=== PATIENT | male | born 2000 | race Caucasian/White ===

== ENCOUNTER 2019-05-03 11:41 | Observation (INO) | payer OTHER ==
[~2019-05-03] VITALS: Ht 182.9 cm; Wt 95.1 kg
--- NOTE | 2019-05-03 12:35 | History & Physicial ---
HPI History of Present Illness: HPI/Chief Complaint 19 yo wm presents with fever and left thigh pain.Had tattoo placed in [place] 5 days prior to this admission. Was done at a professional parlor, equipment was opened in front of him. Thigh around tattoo was red yesterday, today swollen , red hot with increased pain and surrounding pustules. Temperature is 101.3 with tachycardia. Pt has had a history of fractured left femur and has a cj in same leg. Source: patient Exam Limitations: no limitations Date Seen 05/03/19 Time Seen by a Provider: 11:30 Attending Physician Osorio Valverde MD [facility] Referring Physician Date of Admission May 03, 2019 at 12:17 Home Medications & Allergies Home Medications Reviewed patient Home Medication Reconciliation performed by pharmacy medication reconciliations tree trimming line technician and/or nursing. Patients Allergies have been reviewed. Allergies Allergies Coded Allergies Penicillins (Verified Allergy, Unknown, 05/03/19) fluticasone (Verified Allergy, Unknown, 05/03/19) PCN Past Lwahmgp-Thmzkm-Jdrryj Hx Patient Social History Marrital Status: single Employed/Student: student, full-time Recent Foreign Travel: No Contact w/other who traveled: No Surgeries Abdominal (bilateral inguinal hernias), Appendectomy Respiratory No Cardiovascular No Neurological No Genitourinary No Gastrointestinal No Musculoskeletal Fractures (left femur) Endocrine History of Endocrine Disorders: No HEENT History of HEENT Disorders: No Cancer No Did You Recieve Any Treatments: No Psychosocial History of Psychiatric Problem: No Integumentary History of Skin or Integumenta: No Family Medical History Significant Family History: No Pertinent Family Hx Review of Systems Constitutional: see HPI, chills, fever EENTM: no symptoms reported Respiratory: no symptoms reported Cardiovascular: no symptoms reported Gastrointestinal: no symptoms reported Genitourinary: no symptoms reported Musculoskeletal: muscle pain Skin: change in color, rash Psychiatric/Neurological: No Symptoms Reported Physical Exam Physical Exam Vital Signs Vital Signs - First Documented 05/03/19 12:48 Temp 98.1 Pulse 91 Resp 20 B/P (MAP) 132/66 Pulse Ox 99 O2 Delivery Room Air Capillary Refill : less than 3 secs Height, Weight, BMI Height: '" Weight: lbs. oz. kg; BMI Method: General Appearance: WD/WN HEENT: Normal ENT Inspection Neck: Full Range of Motion, Non Tender, Supple Respiratory: Chest Non Tender, Lungs Clear, Normal Breath Sounds, No Accessory Muscle Use, No Respiratory Distress Cardiovascular: Tachycardia Gastrointestinal: Normal Bowel Sounds, Soft Rectal: Deferred Back: Normal Inspection Extremity: Inflammation, Other (left thigh swollen, tight hot with erythema and sourrounding pustules, very tender) Skin: Erythema, Rash Assessment/Plan Admission Diagnosis Sepsis cellulitis Hx fractured femur with indwelling cj-same leg Admission Status: Observation Diagnosis/Problems Diagnosis/Problems (1) Sepsis Status: Acute Qualifiers: Qualified Codes: A41.9 - Sepsis, unspecified organism (2) Cellulitis Qualifiers: Qualified Codes: L03.116 - Cellulitis of left lower limb (3) Closed femur fracture Status: Resolved Resolution Date/Time: 05/03/19 @ 13:09 OSORIO VALVERDE MD May 03, 2019 12:35
[2019-05-03 12:48] VITALS: BP 132/66
[2019-05-03 13:00] VITALS: BP 132/66
[2019-05-03] MEDS ORDERED: NS IV NR (13:00)
[2019-05-03] MEDS ORDERED: NS IV 1000 ML 1,000 ML IV SCH (13:00)
[2019-05-03] MEDS ORDERED: IBUPROFEN TABLET 200 MG TAB PO PRN (13:15)
[2019-05-03] MEDS ORDERED: VANCOMYCIN INJECTION 2,000 MG in NS IV 500 ML 500 ML IV NR (13:39)
[2019-05-03 13:58] LABS: BASOPHILS % (AUTO) 0 % (0-10); EOSINOPHILS # (AUTO) 0.2 10^3/uL (0.0-0.3); EOSINOPHILS % (AUTO) 2 % (0-10); HEMATOCRIT 37 % (40-54); HEMOGLOBIN 12.7 G/DL (13.3-17.7); LYMPHOCYTES # (AUTO) 0.7 X 10^3 (1.0-4.0); LYMPHOCYTES % (AUTO) 7 % (12-44); MEAN CORPUSCULAR HEMOGLOBIN 32 PG (25-34); MEAN CORPUSCULAR HGB CONC 35 G/DL (32-36); MEAN CORPUSCULAR VOLUME 92 FL (80-99); MEAN PLATELET VOLUME 11.1 FL (7.4-10.4); MONOCYTES # (AUTO) 0.4 X 10^3 (0.0-1.0); MONOCYTES % (AUTO) 4 % (0-12); NEUTROPHILS # (AUTO) 7.9 X 10^3 (1.8-7.8); NEUTROPHILS % (AUTO) 86 % (42-75); PLATELET COUNT 141 10^3/uL (130-400); RED CELL DISTRIBUTION WIDTH 11.7 % (10.0-14.5); WHITE BLOOD COUNT 9.2 10^3/uL (4.3-11.0)
[2019-05-03] MEDS ORDERED: ceFAZolin INJECTION 1,000 MG in WATER (STERILE) FOR INJECTION 10 ML IV SCH (14:00)
--- NOTE | 2019-05-03 14:04 | NUR ---
PATIENT DOES NOT TAKE ANY MEDICATION.
[2019-05-03 14:20] LABS: ALANINE AMINOTRANSFERASE 79 U/L (0-55); ALBUMIN 4.3 GM/DL (3.2-4.5); ALKALINE PHOSPHATASE 95 U/L (40-136); BILIRUBIN,TOTAL 2.3 MG/DL (0.1-1.0); BUN/CREATININE RATIO 7; CALCIUM 9.8 MG/DL (8.5-10.1); CARBON DIOXIDE 25 MMOL/L (21-32); CHLORIDE 101 MMOL/L (98-107); CREATININE SERUM 1.15 MG/DL (0.60-1.30); GFR ESTIMATED > 60; GLUCOSE 100 MG/DL (70-105); POTASSIUM 3.9 MMOL/L (3.6-5.0); SODIUM 138 MMOL/L (135-145); TOTAL PROTEIN 7.3 GM/DL (6.4-8.2)
[2019-05-03 14:28] LABS: BAND NEUTROPHILS 4 %; BASOPHILS % (MANUAL) 0 %; EOSINOPHILS % (MANUAL) 1 %; LYMPHOCYTES % (MANUAL) 8 %; MONOCYTES % (MANUAL) 0 %; NEUTROPHILS % (MANUAL) 87 %; RBC MORPH NORMAL
[2019-05-03] MEDS: NS IV 1000 ML 1,000 ML IV SCH ×2 (14:30→22:21)
--- NOTE | 2019-05-03 14:59 | Consultation (Surgery) ---
History of Present Illness History of Present Illness Patient Consulted On(melissa/time) 05/03/19 14:58 Date Seen by Provider: May 03, 2019 Time Seen by Provider: 14:59 History of Present Illness consult requested by Dr. Arias for cellulitis left thigh. patient is a 19-year-old male who had had to place 5 days ago in [place]. had to place 5 days ago in [place]. and swelling. Tender to touch. Significant redness and began having fever. Patient also found to be tachycardic. Patient having moderate pain due to the swelling. Patient states nothing was seen to make it better. Nothing was seems to make it worse except for sometimes movement with the pain. Patient has had fever. he notes left thigh swelling. He denies any sweats chills shortness of breath or chest pain.he also notes that the only difference between his sister and his, was that an unknown ointment was used on his. Allergies and Home Medications Allergies Coded Allergies: Penicillins (Verified Allergy, Unknown, 05/03/19) fluticasone (Verified Allergy, Unknown, 05/03/19) Home Medications No Active Prescriptions or Reported Meds Patient Home Medication List Home Medication List Reviewed: Yes Past Coewalq-Mlnmwg-Kyfnul Hx Patient Social History Alcohol Use: Denies Use Recreational Drug Use: No Smoking Status: Never a Smoker Recent Foreign Travel: No Contact w/Someone Who Travel: No Recent Infectious Disease Expo: No Surgeries Surgeries: Abdominal (bilateral inguinal hernias), Appendectomy Respiratory History of Respiratory Disorde: No Cardiovascular History of Cardiac Disorders: No Neurological History of Neurological Disord: No Genitourinary History of Genitourinary Disor: No Gastrointestinal History of Gastrointestinal Di: No Musculoskeletal Musculoskeletal Disorders: Fractures (left femur) Endocrine History of Endocrine Disorders: No HEENT History of HEENT Disorders: No Cancer History of Cancer: No Psychosocial History of Psychiatric Problem: No Integumentary History of Skin or Integumenta: No Family Medical History Significant Family History: No Pertinent Family Hx Review of Systems-General Constitutional: fever EENTM: no symptoms reported Respiratory: no symptoms reported Cardiovascular: no symptoms reported Gastrointestinal: no symptoms reported Genitourinary: no symptoms reported Musculoskeletal: no symptoms reported Skin: see HPI Psychiatric/Neurological: No Symptoms Reported Physical Exam-General Problems Physical Exam Vital Signs Vital Signs - First Documented 05/03/19 12:48 Temp 98.1 Pulse 91 Resp 20 B/P (MAP) 132/66 Pulse Ox 99 O2 Delivery Room Air Capillary Refill : General Appearance: no apparent distress HEENT: PERRL/EOMI Neck: non-tender, supple Respiratory: chest non-tender, no respiratory distress, no accessory muscle use Cardiovascular: regular rate, rhythm Gastrointestinal: non tender, soft Rectal: deferred Back: no CVA tenderness Extremities: other (left thigh swollen significant erythema with small pustules surrounding tattoo on left anterior thigh) 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, no motor/sensory deficits, alert, normal mood/affect, oriented x 3 Skin: rash (erythema large portion of left thigh) Lymphatic: no adenopathy Data Review Labs Laboratory Tests 05/03/19 13:47: White Blood Count 9.2, Red Blood Count 3.99L, Hemoglobin 12.7L, Hematocrit 37L, Mean Corpuscular Volume 92, Mean Corpuscular Hemoglobin 32, Mean Corpuscular Hemoglobin Concent 35, Red Cell Distribution Width 11.7, Platelet Count 141, Mean Platelet Volume 11.1H, Neutrophils (%) (Auto) 86H, Lymphocytes (%) (Auto) 7L, Monocytes (%) (Auto) 4, Eosinophils (%) (Auto) 2, Basophils (%) (Auto) 0, Neutrophils # (Auto) 7.9H, Lymphocytes # (Auto) 0.7L, Monocytes # (Auto) 0.4, Eosinophils # (Auto) 0.2, Basophils # (Auto) 0.0, Neutrophils % (Manual) 87, Lym phocytes % (Manual) 8, Monocytes % (Manual) 0, Eosinophils % (Manual) 1, Basophils % (Manual) 0, Band Neutrophils 4, Blood Morphology Comment NORMAL, Sodium Level 138, Potassium Level 3.9, Chloride Level 101, Carbon Dioxide Level 25, Anion Gap 12, Blood Urea Nitrogen 8, Creatinine 1.15, Estimat Glomerular Filtration Rate > 60, BUN/Creatinine Ratio 7, Glucose Level 100, Lactic Acid Level 1.22, Calcium Level 9.8, Corrected Calcium 9.6, Total Bilirubin 2.3H, Aspartate Amino Transf (AST/SGOT) 33, Alanine Aminotransferase (ALT/SGPT) 79H, Alkaline Phosphatase 95, Total Protein 7.3, Albumin 4.3 Assessment/Plan Assessment/Plan Assessment/Plan cellulitis left thigh left thigh pain Patient currently on Ancef and vancomycin. erythema has been outlined. no surgical intervention at this time. We'll continue to follow JULISSA CARBAJAL DO May 03, 2019 14:59
[2019-05-03 15:20] VITALS: BP 132/60
[2019-05-03] MEDS ORDERED: diphenhydrAMINE 12.5 MG/5 ML UDC (BENADRYL) PO PRN (16:30)
[2019-05-03] MEDS: ENOXAPARIN 40 MG/0.4 ML (LOVENOX) SYR SC SCH (18:10)
[2019-05-03] MEDS ORDERED: CATHETER FLUSH 10 ML SYR IV PRN (18:15)
[2019-05-03 19:50] VITALS: BP 133/60
[2019-05-03] MEDS: VANCOMYCIN 1500 MG/NS 500 ML IVPB IV SCH ×2 (22:22)
[2019-05-04] VITALS (8 sets, daily range): BP systolic 116–140; BP diastolic 59–78
[2019-05-04] MEDS: ceFAZolin INJECTION 1,000 MG in WATER (STERILE) FOR INJECTION 10 ML IV SCH ×3 (03:09→17:57)
[2019-05-04 04:45] LABS: BASOPHILS % (AUTO) 0 % (0-10); EOSINOPHILS # (AUTO) 0.3 10^3/uL (0.0-0.3); EOSINOPHILS % (AUTO) 5 % (0-10); HEMATOCRIT 34 % (40-54); HEMOGLOBIN 11.5 G/DL (13.3-17.7); LYMPHOCYTES # (AUTO) 1.6 X 10^3 (1.0-4.0); LYMPHOCYTES % (AUTO) 29 % (12-44); MEAN CORPUSCULAR HEMOGLOBIN 32 PG (25-34); MEAN CORPUSCULAR HGB CONC 34 G/DL (32-36); MEAN CORPUSCULAR VOLUME 93 FL (80-99); MEAN PLATELET VOLUME 11.2 FL (7.4-10.4); MONOCYTES # (AUTO) 0.5 X 10^3 (0.0-1.0); MONOCYTES % (AUTO) 10 % (0-12); NEUTROPHILS # (AUTO) 3.1 X 10^3 (1.8-7.8); NEUTROPHILS % (AUTO) 57 % (42-75); PLATELET COUNT 124 10^3/uL (130-400); RED CELL DISTRIBUTION WIDTH 11.6 % (10.0-14.5); WHITE BLOOD COUNT 5.5 10^3/uL (4.3-11.0)
[2019-05-04 04:59] LABS: ALANINE AMINOTRANSFERASE 49 U/L (0-55); ALBUMIN 3.2 GM/DL (3.2-4.5); ALKALINE PHOSPHATASE 66 U/L (40-136); BILIRUBIN,TOTAL 0.7 MG/DL (0.1-1.0); BUN/CREATININE RATIO 8; CALCIUM 8.5 MG/DL (8.5-10.1); CARBON DIOXIDE 21 MMOL/L (21-32); CHLORIDE 111 MMOL/L (98-107); CREATININE SERUM 0.91 MG/DL (0.60-1.30); GFR ESTIMATED > 60; GLUCOSE 103 MG/DL (70-105); SODIUM 141 MMOL/L (135-145); TOTAL PROTEIN 5.4 GM/DL (6.4-8.2)
[2019-05-04] MEDS: NS IV 1000 ML 1,000 ML IV SCH (05:16)
[2019-05-04] MEDS: VANCOMYCIN 1500 MG/NS 500 ML IVPB IV SCH ×6 (06:33→21:42)
--- NOTE | 2019-05-04 12:18 | Progress Note-Hospitalist ---
Subjective HPI/CC On Admission Date Seen by Provider: May 04, 2019 Time Seen by Provider: 12:00 19 yo wm presents with fever and left thigh pain.Had tattoo placed in [place] 5 days prior to this admission. Was done at a professional parlor, equipment was opened in front of him. Thigh around tattoo was red yesterday, today swollen , r ed hot with increased pain and surrounding pustules. Temperature is 101.3 with tachycardia. Pt has had a history of fractured left femur and has a cj in same leg. Subjective/Events-last exam Pt feeling much better. less erythema, pustules remain. eating and drinking well. Afebrile, WBC down. Review of Systems Musculoskeletal: leg pain Focused Exam Lactate Level 05/03/19 13:47: Lactic Acid Level 1.22 Objective Exam Vital Signs Vital Signs Date Time Temp Pulse Resp B/P (MAP) Pulse Ox O2 Delivery O2 Flow Rate FiO2 05/04/19 08:55 Room Air 05/04/19 08:00 98.2 68 20 116/67 (83) 98 Capillary Refill : General Appearance: WD/WN HEENT: Normal ENT Inspection Neck: Full Range of Motion, Non Tender, Supple Respiratory: Chest Non Tender, Lungs Clear, Normal Breath Sounds, No Accessory Muscle Use, No Respiratory Distress Cardiovascular: Tachycardia Gastrointestinal: Normal Bowel Sounds, Soft Rectal: Deferred Back: Normal Inspection Extremity: Inflammation, Other (decreased erythema and heat) Skin: Erythema, Rash Results/Procedures Lab Laboratory Tests 05/03/19 13:47 05/04/19 04:25 Patient resulted labs reviewed. Assessment/Plan Assessment and Plan Assess & Plan/Chief Complaint 1. Cellulitis- cultures pending- day #2 Vanc,Ancef 2.Elevated lft's-improved 3.decreased Platelets- watch on Lovenox for DVT prophylaxis Diagnosis/Problems Diagnosis/Problems (1) Sepsis Status: Acute Qualifiers: Sepsis type: sepsis due to unspecified organism Qualified Codes: A41.9 - Sepsis, unspecified organism (2) Cellulitis Qualifiers: Site of cellulitis: extremity Site of cellulitis of extremity: lower extremity Laterality: left Qualified Codes: L03.116 - Cellulitis of left lower limb (3) Closed femur fracture Status: Resolved Resolution Date/Time: 05/03/19 @ 13:09 (4) Thrombocytopenia Status: Acute Clinical Quality Measures DVT/VTE Risk/Contraindication: Risk Factor Score Per Nursin RFS Level Per Nursing on Admit: 3=High OSORIO VALVERDE MD May 04, 2019 12:18
[2019-05-04] MEDS ORDERED: TROUGH ORDER-PHARMACY XX NR (13:00)
[2019-05-04] MEDS: ENOXAPARIN 40 MG/0.4 ML (LOVENOX) SYR SC SCH (13:52)
--- NOTE | 2019-05-04 14:17 | Progress Note ---
Subjective Date Seen by a Provider: May 04, 2019 Time Seen by a Provider: 10:02 Subjective/Events-last exam patient leg is feeling better. Not having as much discomfort. The redness and swelling has decreased. Still with pustules. No new complaints. Denies any nausea vomiting fever sweats chills shortness of breath or chest pain. Focused Exam Lactate Level 05/03/19 13:47: Lactic Acid Level 1.22 Objective Exam Vital Signs Date Time Temp Pulse Resp B/P (MAP) Pulse Ox O2 Delivery O2 Flow Rate FiO2 05/04/19 12:00 97.7 68 20 133/78 (96) 98 Room Air 05/04/19 08:55 Room Air 05/04/19 08:00 98.2 68 20 116/67 (83) 98 Room Air 05/04/19 04:38 98.0 54 22 121/62 (81) 98 Room Air 05/04/19 00:22 97.0 70 20 129/59 (82) 99 Room Air 05/04/19 00:21 97.0 70 20 129/59 (82) 99 Room Air 05/03/19 21:00 98.1 05/03/19 20:09 100.4 05/03/19 20:00 Room Air 05/03/19 19:50 100.4 85 20 133/60 (84) 99 Room Air 05/03/19 19:50 100.4 85 20 133/60 (84) 99 Room Air 05/03/19 15:20 98.9 100 18 132/60 (84) 100 Room Air I & O 05/04/19 07:00 Intake Total 2128 ml Balance 2128 ml Capillary Refill : General Appearance: No Apparent Distress, WD/WN HEENT: PERRL/EOMI, Normal ENT Inspection Neck: Full Range of Motion, Non Tender, Supple Respiratory: Chest Non Tender, No Accessory Muscle Use, No Respiratory Distress Cardiovascular: Regular Rate, Rhythm Gastrointestinal: non tender, soft Extremity: Inflammation, Other (decreased erythema left thigh) Neurologic/Psychiatric: Alert, Oriented x3, No Motor/Sensory Deficits, Normal Mood/Affect, technical services analyst II-XII Norm as Tested Skin: Normal Color, Warm/Dry, Erythema (Less left thigh with small pustules), Rash Lymphatic: No Adenopathy Results Lab Laboratory Tests 05/04/19 04:25: White Blood Count 5.5, Red Blood Count 3.61L, Hemoglobin 11.5L, Hematocrit 34L, Mean Corpuscular Volume 93, Mean Corpuscular Hemoglobin 32, Mean Corpuscular H emoglobin Concent 34, Red Cell Distribution Width 11.6, Platelet Count 124L, Mean Platelet Volume 11.2H, Neutrophils (%) (Auto) 57, Lymphocytes (%) (Auto) 29, Monocytes (%) (Auto) 10, Eosinophils (%) (Auto) 5, Basophils (%) (Auto) 0, Neutrophils # (Auto) 3.1, Lymphocytes # (Auto) 1.6, Monocytes # (Auto) 0.5, Eosinophils # (Auto) 0.3, Basophils # (Auto) 0.0, Sodium Level 141, Potassium Level 4.0, Chloride Level 111#H, Carbon Dioxide Level 21, Anion Gap 9, Blood Urea Nitrogen 7, Creatinine 0.91, Estimat Glomerular Filtration Rate > 60, BUN/Creatinine Ratio 8, Glucose Level 103, Calcium Level 8.5, Corrected Calcium 9.1, Total Bilirubin 0.7, Aspartate Amino Transf (AST/SGOT) 17, Alanine Aminotransferase (ALT/SGPT) 49, Alkaline Phosphatase 66, Total Protein 5.4L, Albumin 3.2 05/04/19 13:05: Vancomycin Level Trough 16.8 Assessment/Plan Assessment/Plan Assessment/Plan cellulitis left thigh left thigh pain Patient currently on Ancef and vancomycin. erythema has been outlined And has decreased with less intensity no surgical intervention at this time. await cultures Clinical Quality Measures DVT/VTE Risk/Contraindication: Risk Factor Score Per Nursin RFS Level Per Nursing on Admit: 3=High JULISSA CARBAJAL DO May 04, 2019 14:17
[2019-05-05] MEDS: ceFAZolin INJECTION 1,000 MG in WATER (STERILE) FOR INJECTION 10 ML IV SCH ×2 (02:21→09:46)
[2019-05-05 04:00] VITALS: BP 129/67
[2019-05-05 04:59] LABS: BASOPHILS % (AUTO) 0 % (0-10); EOSINOPHILS # (AUTO) 0.3 10^3/uL (0.0-0.3); EOSINOPHILS % (AUTO) 6 % (0-10); HEMATOCRIT 35 % (40-54); HEMOGLOBIN 11.9 G/DL (13.3-17.7); LYMPHOCYTES # (AUTO) 1.9 X 10^3 (1.0-4.0); LYMPHOCYTES % (AUTO) 32 % (12-44); MEAN CORPUSCULAR HEMOGLOBIN 32 PG (25-34); MEAN CORPUSCULAR HGB CONC 34 G/DL (32-36); MEAN CORPUSCULAR VOLUME 94 FL (80-99); MEAN PLATELET VOLUME 10.6 FL (7.4-10.4); MONOCYTES # (AUTO) 0.5 X 10^3 (0.0-1.0); MONOCYTES % (AUTO) 9 % (0-12); NEUTROPHILS # (AUTO) 3.1 X 10^3 (1.8-7.8); NEUTROPHILS % (AUTO) 54 % (42-75); PLATELET COUNT 175 10^3/uL (130-400); RED CELL DISTRIBUTION WIDTH 11.7 % (10.0-14.5); WHITE BLOOD COUNT 5.8 10^3/uL (4.3-11.0)
[2019-05-05 05:22] LABS: ALANINE AMINOTRANSFERASE 39 U/L (0-55); ALBUMIN 3.5 GM/DL (3.2-4.5); ALKALINE PHOSPHATASE 69 U/L (40-136); BILIRUBIN,TOTAL 0.4 MG/DL (0.1-1.0); BUN/CREATININE RATIO 7; CALCIUM 9.1 MG/DL (8.5-10.1); CARBON DIOXIDE 24 MMOL/L (21-32); CHLORIDE 108 MMOL/L (98-107); CREATININE SERUM 1.13 MG/DL (0.60-1.30); GFR ESTIMATED > 60; GLUCOSE 108 MG/DL (70-105); POTASSIUM 4.3 MMOL/L (3.6-5.0); SODIUM 142 MMOL/L (135-145)
[2019-05-05] MEDS: VANCOMYCIN 1500 MG/NS 500 ML IVPB IV SCH ×2 (06:05)
[2019-05-05 08:00] VITALS: BP 128/75
[2019-05-05] MEDS ORDERED: CEPH-507 PO (10:08)
[2019-05-05] MEDS ORDERED: DOXY100T19 PO (10:08)
--- NOTE | 2019-05-05 10:13 | Discharge Summary-Hospitalist ---
Diagnosis/Chief Complaint Date of Admission May 03, 2019 at 12:17 Date of Discharge Discharge Date: May 05, 2019 Discharge Time: 1100 Admission Diagnosis Sepsis cellulitis Hx fractured femur with indwelling cj-same leg Discharge Diagnosis Cellulitis secondary to staph Thrombocytopenia resolved Elevated liver function tests resolved Previous history of fractured femur with an indwelling cj (1) Sepsis Status: Resolved (2) Cellulitis (3) Closed femur fracture Status: Resolved (4) Thrombocytopenia Status: Resolved Discharge Summary Procedures/Consulations General surgery Discharge Physical Exam Allergies: Coded Allergies: Penicillins (Verified Allergy, Unknown, 05/03/19) fluticasone (Verified Allergy, Unknown, 05/03/19) Vitals & I&Os Vital Signs Date Time Temp Pulse Resp B/P (MAP) Pulse Ox O2 Delivery O2 Flow Rate FiO2 05/05/19 08:42 Room Air 05/05/19 08:00 98.8 63 20 128/75 (92) 97 General Appearance: No Apparent Distress, WD/WN Respiratory: Lungs Clear, Normal Breath Sounds, No Accessory Muscle Use, No Respiratory Distress Cardiovascular: Regular Rate, Rhythm, No Gallop, No Murmur Gastrointestinal: Non Tender, Soft Extremity: Other (Almost complete resolution of pustules left thigh remains enlarged resolving erythema) Skin: Normal Color, Warm/Dry Neurologic/Psychiatric: Alert, Oriented x3, Normal Mood/Affect Hospital Course Was the Problem List Reviewed?: Yes Patient was admitted for presumed sepsis secondary to fever tachycardia and elevated liver function tests. He was not hypotensive so aggressive IV fluid rehydration was not instituted. He was started quickly on vancomycin and Ancef. Blood cultures were negative. Wound culture of the pustules showed staph aureus, sensitivities pending at the time of this dictation. The patient was placed on DVT prophylaxis with Lovenox because of the swelling of the thigh. White count was normal. At the time of discharge the patient is doing better but we'll be discharged on 2 antibiotics in an abundance of caution because of his indwelling cj in that femur Labs (last 24 hrs) Laboratory Tests 05/04/19 13:05: Vancomycin Level Trough 16.8 05/05/19 04:33: White Blood Count 5.8, Red Blood Count 3.75L, Hemoglobin 11.9L, Hematocrit 35L, Mean Corpuscular Volume 94, Mean Corpuscular Hemoglobin 32, Mean Corpuscular Hemoglobin Concent 34, Red Cell Distribution Width 11.7, Platelet Count 175, Mean Platelet Volume 10.6H, Neutrophils (%) (Auto) 54, Lymphocytes (%) (Auto) 32, Monocytes (%) (Auto) 9, Eosinophils (%) (Auto) 6, Basophils (%) (Auto) 0, Neutrophils # (Auto) 3.1, Lymphocytes # (Auto) 1.9, Monocytes # (Auto) 0.5, Eosinophils # (Auto) 0.3, Basophils # (Auto) 0.0, Sodium Level 142, Potassium Level 4.3, Chloride Level 108H, Carbon Dioxide Level 24, Anion Gap 10, Blood Urea Nitrogen 8, Creatinine 1.13, Estimat Glomerular Filtration Rate > 60, BUN/Creatinine Ratio 7, Glucose Level 108H, Calcium Level 9.1, Corrected Calcium 9.5, Total Bilirubin 0.4, Aspartate Amino Transf (AST/SGOT) 16, Alanine Aminotransferase (ALT/SGPT) 39, Alkaline Phosphatase 69, Total Protein 6.0L, Albumin 3.5 Microbiology 05/03/19 Blood Culture - Preliminary, Resulted No growth 05/03/19 Gram Stain - Final, Resulted 05/03/19 Wound Culture - Preliminary, Resulted Staphylococcus aureus Patient resulted labs reviewed. Pending Labs Laboratory Tests 05/05/19 04:33: White Blood Count 5.8, Red Blood Count 3.75, Hemoglobin 11.9, Hematocrit 35, Mean Corpuscular Volume 94, Mean Corpuscular Hemoglobin 32, Mean Corpuscular Hemoglobin Concent 34, Red Cell Distribution Width 11.7, Platelet Count 175, Mean Platelet Volume 10.6, Neutrophils (%) (Auto) 54, Lymphocytes (%) (Auto) 32, Monocytes (%) (Auto) 9, Eosinophils (%) (Auto) 6, Basophils (%) (Auto) 0, Neutrophils # (Auto) 3.1, Lymphocytes # (Auto) 1.9, Monocytes # (Auto) 0.5, Eosinophils # (Auto) 0.3, Basophils # (Auto) 0.0, Sodium Level 142, Potassium Level 4.3, Chloride Level 108, Carbon Dioxide Level 24, Anion Gap 10, Blood Urea Nitrogen 8, Creatinine 1.13, Estimat Glomerular Filtration Rate > 60, BUN/Creatinine Ratio 7, Glucose Level 108, Calcium Level 9.1, Corrected Calcium 9.5, Total Bilirubin 0.4, Aspartate Amino Transf (AST/SGOT) 16, Alanine Aminotransferase (ALT/SGPT) 39, Alkaline Phosphatase 69, Total Protein 6.0, Albumin 3.5 Discussion & Recommendations Discharge Planning: <30 minutes discharge planning Discharge Home Medications: Active Scripts Active Keflex (Cephalexin) 500 Mg Capsule 500 Mg PO TID Doxycycline Monohydrate 100 Mg Tablet 100 Mg PO BID 10 Days Condition at discharge Stable Instructions to patient/family Please see electronic discharge instructions given to patient. Clinical Quality Measures Admission Status Admission Status: Observation DVT/VTE Risk/Contraindication: VTE Addressed: Yes Risk Factor Score Per Nursin RFS Level Per Nursing on Admit: 3=High Problem Qualifiers (1) Sepsis: Sepsis type: sepsis due to unspecified organism Qualified Codes: A41.9 - Sepsis, unspecified organism (2) Cellulitis: Site of cellulitis: extremity Site of cellulitis of extremity: lower extremity Laterality: left Qualified Codes: L03.116 - Cellulitis of left lower limb OSORIO VALVERDE MD May 05, 2019 10:13
== END 2019-05-05 10:03 | disposition home or self-care (01) ==
LOC: UNDOADMOB 12:17 → 4TH 12:17 → UNDODISOB 05-05 11:00
PROVIDERS: ADMIT Internal Medicine; ATTEND Internal Medicine
DX: A41.01 Sepsis due to Methicillin susceptible Staphylococcus aureus (principal); L03.116 Cellulitis of left lower limb; D69.6 Thrombocytopenia, unspecified; Z88.0 Allergy status to penicillin
CPT/HCPCS: 36415; 80053; 80202; 83605; 85007; 85025; 85027; 87040; 87070; 87077; 87186; 87205; 99211; G0378